=== PATIENT | male | born 1985 | race Caucasian/White ===

== ENCOUNTER 2019-01-13 11:35 | Emergency (ER) | payer OTHER ==
[~2019-01-13] VITALS: Ht 175.3 cm; Wt 68.0 kg
[2019-01-13] MEDS ORDERED: NABUMETONE 750750 M1 PO (11:54)
[2019-01-13] MEDS ORDERED: ZANAFLEX4 MG PO (11:54)
[2019-01-13 12:55] VITALS: BP 142/91
== END 2019-01-13 12:57 | disposition home or self-care (01) ==
LOC: M.ERS 11:35
DX: S39.012A Strain of muscle, fascia and tendon of lower back, initial encounter (principal); S29.012A Strain of muscle and tendon of back wall of thorax, initial encounter; Z88.0 Allergy status to penicillin; W23.0XXA Caught, crushed, jammed, or pinched between moving objects, initial encounter; Y93.89 Activity, other specified; Y92.89 Other specified places as the place of occurrence of the external cause; Y99.8 Other external cause status

== ENCOUNTER 2019-06-07 17:44 | Emergency (ER) | payer OTHER ==
[~2019-06-07] VITALS: Ht 175.3 cm; Wt 79.4 kg
[~2019-06-07 17:44] MED LIST: NABUMETONE 750750 M1 PO; ZANAFLEX4 MG PO
[2019-06-07 20:21] LABS: ABSOLUTE LYMPHOCYTES 1.7 thou/uL (0.8-5.3); ABSOLUTE MONOCYTES 0.7 thou/uL (0.0-1.2); ABSOLUTE NEUTROPHILS 7.4 thou/uL (1.6-8.1); BASOPHILS 0.2 %; EOSINOPHILS 0.5 %; HEMATOCRIT 40.6 % (42.0-52.0); HEMOGLOBIN 14.2 gm/dL (14.0-18.0); MCH 29.6 pg (26.0-34.0); MCV 84.5 fL (80.0-100.0); MONOCYTES 6.8 %; MPV 8.4 fl. (7.2-11.1); NUCLEATED RBCS 0 /100WBC; PLATELET COUNT* 268 thou/uL (150-400); POLYS 75.5 %; RBC 4.81 mil/uL (4.50-6.00); RDW-CV 13.3 % (10.5-14.5); WBC 9.8 thou/uL (4.0-11.0)
[2019-06-07 20:28] LABS: CALCIUM 8.7 mg/dL (8.5-10.1); CREATININE 1.1 mg/dL (0.6-1.3); POTASSIUM 3.8 mmol/L (3.5-5.1)
[2019-06-07] MEDS ORDERED: PERCOCET 7.5-31 EAC1 PO (22:21)
[2019-06-07 22:47] VITALS: BP 148/77
== END 2019-06-07 22:47 | disposition home or self-care (01) ==
LOC: M.ERS 17:44
PROVIDERS: Emergency Medicine
DX: S70.12XA Contusion of left thigh, initial encounter (principal); S30.1XXA Contusion of abdominal wall, initial encounter; Z88.0 Allergy status to penicillin; W18.39XA Other fall on same level, initial encounter; Y93.89 Activity, other specified; Y92.89 Other specified places as the place of occurrence of the external cause; Y99.8 Other external cause status